=== PATIENT | female | born 1970 | race American Indian/Alaskan Native ===

== ENCOUNTER 2017-12-03 02:23 | Emergency (ER) | payer MEDICARE ==
[2017-12-03] MEDS ORDERED: TYLENOL PO ONE (03:06)
[2017-12-03 05:32] VITALS: BP 171/109
== END 2017-12-03 06:00 | disposition left against medical advice (07) ==
LOC: ED 02:23
DX: G43.909 Migraine, unspecified, not intractable, without status migrainosus (principal); Z53.21 Procedure and treatment not carried out due to patient leaving prior to being seen by health care provider